=== PATIENT | male | born 1955 | race Caucasian/White ===

== ENCOUNTER 2019-11-16 00:57 | Outpatient (CLI) | payer OTHER, SELFPAY ==
[2019-11-16 18:01] LABS: SARS-CoV-2 RNA PCR Negative
== END 2019-11-16 00:58 | disposition home or self-care (01) ==
LOC: ANHCOVIDDT 00:57
PROVIDERS: PCP Internal Medicine; Visit Provider Internal Medicine Gastroenterology
DX: Z01.812 Encounter for preprocedural laboratory examination (principal); Z20.828 Contact with and (suspected) exposure to other viral communicable diseases
CPT/HCPCS: 87635; C9803; U0003

== ENCOUNTER 2019-11-18 00:37 | Day surgery (SDC) | payer OTHER, SELFPAY ==
[2019-11-11 14:37] VITALS: BMI 25.0
[2019-11-18 06:23] VITALS: BP 157/84; PULSE 69; RESP 16; TEMP 36.4; O2SAT 97; BMI 24.7
[2019-11-18] MEDS: LACTATED RINGERS 1,000 ML 150 ML IV CONT (06:33)
--- NOTE | 2019-11-18 07:02 | P.HP_ITS ---
History of Present Illness History of Present Illness Consent: Risks, benefits, and alternatives have been discussed and questions answered. Patient agrees to proceed with procedure. Chief complaint: PERSONAL HX COLON POLYPS Narrative: Yeyo Bailon is a 64 year old W male Referred for colonoscopy secondary history of colonic polyps. Last colonoscopy was 4 years ago. No family history of colon cancer. Patient is asymptomatic. Patient does have a history of Schatzki's ring which was dilated 4 years ago and he has done well since that time. Patient also stop smoking 2 years ago. [facility] Past Medical History Medical History (Updated 11/18/19 @ 07:05 by Alonzo Lim MD) Aftercare following right shoulder joint replacement surgery Surgical History Surgical History (Updated 11/18/19 @ 07:05 by Alonzo Lim MD) Previous back surgery S/P bilateral inguinal herniorrhaphy Status post tonsillectomy and adenoidectomy Family History Family History Sibling Family history of gastrointestinal disorder Family history of malignant neoplasm of cervix Father Family history of congenital heart disease Mother Family history of malignant neoplasm Other Family history of arthritis Family history of lung cancer Social History Social History Smoking status: Former smoker Second hand tobacco smoke exposure: No Smoking end date: 02/18/14 Alcohol intake: current Substance use: never Gender identity (if verbalized by the patient): Male Meds Home Medications and Allergies Home Medications Medication Instructions Recorded Confirmed Type No Home Medications 11/11/19 11/18/19 History Allergies Allergy/AdvReac Type Severity Reaction Status Date / Time No Known Allergies Allergy Verified 11/18/19 06:22 Vital Signs Vital Signs - 24 hr 11/18/19 06:23 Temperature 36.4 C L Pulse Rate 69 Respiratory Rate 16 Blood Pressure 157/84 H Pulse Oximetry 97 Exam Const: Orientation/consciousness: patient oriented x3 Resp: Auscultation: clear to auscultation bilaterally Cardio: Rate: regular rate Rhythm: regular rhythm Heart sounds: no murmurs GI: GI Palp: Yes Soft to palpation, No Tenderness to palpation present (GI), Yes No hepatosplenomegaly present and No Palpable mass present Auscultation: normal bowel sounds Neuro: General: patient oriented x3 and no focal motor deficits Extrem: General: no pedal edema Assessment and Plan Additional Plan screening colonoscopy secondary history of colonic polyps
--- NOTE | 2019-11-18 07:09 | WPDANESEPPF ---
Anes - Initial Pre Proc Eval Procedure: Operation Date: 11/18/19 07:30 Proposed Procedures p Screening Colonoscopy - Alonzo Lim MD Date/Time: 11/18/19 07:09 Surgeon: Alonzo Lim MD Pre Op Diagnosis: PERSONAL HX COLON POLYPS Patient Data Age: 64 Gender: M Height: 6 ft 3 in Weight: 89.8 kg Last Vital Signs Temp 36.4 C L 11/18/19 06:23 Pulse 69 11/18/19 06:23 Resp 16 11/18/19 06:23 BP 157/84 H 11/18/19 06:23 Pulse Ox 97 11/18/19 06:23 Allergies Allergy/AdvReac Type Severity Reaction Status Date / Time No Known Allergies Allergy Verified 11/18/19 06:22 Home Medications Medication Instructions Recorded Confirmed Type No Home Medications 11/11/19 11/18/19 History Patient hx anesthesia problems: none Family hx anesthesia problems: none PMFSH Past Medical History Medical History Aftercare following right shoulder joint replacement surgery LILI (obstructive sleep apnea) Surgical History Surgical History Previous back surgery S/P bilateral inguinal herniorrhaphy Status post tonsillectomy and adenoidectomy Family History Family History Sibling Family history of gastrointestinal disorder Family history of malignant neoplasm of cervix Father Family history of congenital heart disease Mother Family history of malignant neoplasm Other Family history of arthritis Family history of lung cancer Social History Social History Smoking status: Former smoker Second hand tobacco smoke exposure: No Smoking end date: 02/18/14 Alcohol intake: current Substance use: never Gender identity (if verbalized by the patient): Male Anes - Eval Final PreProcedure Day of Procedure 11/18/19 07:09 Patient weight: normal Heart: regular rate and rhythm Lungs: clear to auscultation Airway: Mallampati scale class II Neurological: alert and oriented Last oral intake: >/= 8 hours ASA classification: II Emergent: no Anesthetic plan: proceed Anesthesia type and monitoring: general GIVS and standard monitoring Informed Consent: The patient's anesthetic plan and its attendant risks and benefits were discussed with the patient/family/POA. Questions were solicited and answers provided to the satisfaction of the patient/family/POA.
[2019-11-18 07:44] VITALS: BP 111/60; PULSE 71; RESP 20; O2SAT 98
[2019-11-18 07:54] VITALS: BP 117/64; PULSE 69; RESP 21; O2SAT 100
[2019-11-18 08:04] VITALS: BP 139/82; PULSE 57; RESP 14; O2SAT 98
== END 2019-11-18 08:18 | disposition home or self-care (01) ==
PROVIDERS: PCP Internal Medicine; Visit Provider Internal Medicine Gastroenterology
PROC: 0DJD8ZZ Inspection of Lower Intestinal Tract, Via Natural or Artificial Opening Endoscopic (ICD-10-PCS; CPT 45378; principal; 2019-11-18 07:30)
DX: Z12.11 Encounter for screening for malignant neoplasm of colon (principal); Z86.010 Personal history of colon polyps; K57.30 Diverticulosis of large intestine without perforation or abscess without bleeding; K64.8 Other hemorrhoids; G47.33 Obstructive sleep apnea (adult) (pediatric); Z87.891 Personal history of nicotine dependence
CPT/HCPCS: 45378; J2704; J7120

== ENCOUNTER 2021-01-13 10:56 | Emergency (ER) | payer OTHER, SELFPAY ==
--- NOTE | ~2021-01-13 | CT_ITS ---
EXAMINATION: CT brain wo con INDICATION: Headache COMPARISON: None TECHNIQUE: Standard unenhanced head CT. The dose-length product (DLP) was 681.00 mGy-cm. The mA was a djusted according to patient size. Iterative reconstruction technique was employed. FINDINGS: There is no acute intraparenchymal hemorrhage. No evidence of mass lesion. No evidence of a cute infarction. There is mild periventricular and subcortical hypodensity probably related to small vessel ischemic disease. There is mild prominence of the sulci and ventricles related to cerebral atr ophy. Intracranial calcified cerebral atherosclerosis is noted. There are no extra-axial collections. There is no mass effect or midline shift. The orbits and soft tissues are unremarkable. There is mil d mucosal thickening of the paranasal sinuses. IMPRESSION: 1. No acute intracranial abnormality. 2. Age related findings. Reviewed, dictated and finalized at location A. RIBUTION TECH
[2021-01-13 11:10] VITALS: BP 167/82; PULSE 79; RESP 16; TEMP 36.9; O2SAT 97
[2021-01-13 12:17] LABS: Basophils Absolute Auto 0.1 K/mm3 (0.0-0.1); Basophils Percent Auto 1.1 % (0.2-1.2); Eosinophils Absolute Auto 0.4 K/mm3 (0-0.3); Eosinophils Percent Auto 4.2 % (0-4.4); Hemoglobin 17.2 g/dL (14.0-18.0); Immature Granulocyte Absolute 0.04 K/mm3 (0.00-0.031); Immature Granulocyte Percent A 0.5 % (0-0.5); Lymphocytes Absolute Auto 1.39 K/mm3 (0.9-3.2); Lymphocytes Percent Auto 16.7 % (18.3-44.2); Mean Corpuscular HGB Conc 35.1 g/dl (32-36); Mean Corpuscular Hemoglobin 32.5 pg (26-34); Mean Corpuscular Volume 92.6 fl (80-100); Mean Platelet Volume 9.2 fl (7.4-10.4); Monocytes Absolute Auto 1.1 K/mm3 (0.1-0.6); Monocytes Percent Auto 12.8 % (2.6-8.5); Neutrophils Absolute Auto 5.4 K/mm3 (1.3-6.7); Neutrophils Percent Auto 64.7 % (45.5-73.1); Platelet Count Result 232 k/mm3 (150-375); Red Blood Count 5.29 M/mm3 (4.6-6.20); Red Cell Distribution Width 12.7 % (11.5-14.5); White Blood Count 8.3 K/mm3 (4.5-10.0)
[2021-01-13 12:26] LABS: Alanine Aminotransferase 33 U/L (4-50); Alkaline Phosphatase 67 U/L (38-126); Anion Gap 8 mmol/L (8-16); Aspartate Amino Transferase 37 U/L (17-59); Bilirubin,Total 0.7 mg/dL (0.2-1.3); Blood Urea Nitrogen 26 mg/dL (9-20); Calcium 9.7 mg/dL (8.4-10.2); Carbon Dioxide 27 mmol/L (22-30); Chloride 101 mmol/L (98-107); Estimated CRCL calculation 85 ml/min; Estimated Glomerular Filt Rate > 60; Glucose 117 mg/dL (65-110); Potassium 4.4 mmol/L (3.4-5.0); Sodium 136 mmol/L (137-145)
--- NOTE | 2021-01-13 12:33 | ED.HA ---
HPI - Headache General Chief Complaint: Headache Stated Complaint: transient headaches Time Seen by Provider: 01/13/21 11:37 Source: patient History of Present Illness HPI Narrative: Patient presents with left temporal headache intermittently over the past 2 days. Ports he gets a sharp shooting pain in his left temporal been resolved without interventions. He took Tylenol this morning has not had episodes today. He also reports associated blurry vision when looking off into the distance in his left eye. He denies any trauma to the area denies any fevers, cough, congestion denies any focal numbness or weakness he denies prior history of headaches. Related Data Home Medications Medication Instructions Recorded Confirmed finasteride 1 mg tablet 1 mg PO DAILY 07/05/20 07/05/20 tamsulosin 0.4 mg capsule 0.4 mg PO DAILY 07/05/20 07/05/20 Allergies Allergy/AdvReac Type Severity Reaction Status Date / Time No Known Allergies Allergy Verified 07/05/20 08:50 Review of Systems Review of Systems: CONSTITUTIONAL: Denies fever, chills, or sweats. EYES: Denies redness, or discharge. ENT: Denies rhinorrhea, congestion, sore throat, or otalgia. CARDIOVASCULAR: Denies chest pain, palpitations, or edema. RESPIRATORY: Denies cough or dyspnea. GASTROINTESTINAL: Denies abdominal pain, nausea, vomiting, or diarrhea. GENITOURINARY: Denies dysuria or hematuria. SKIN: Denies rash or itching. MUSCULOSKELETAL: Denies back pain, joint pain, or myalgia. NEUROLOGIC: Denies numbness, dizziness, or weakness. PSYCHIATRIC: Denies anxiety or depression. All systems reviewed & are unremarkable except as noted in HPI and below [facility] Past Medical History Medical History (Updated 01/13/21 @ 13:07 by Aleksandar Blackman MD) Aftercare following right shoulder joint replacement surgery LILI (obstructive sleep apnea) Surgical History Surgical History Previous back surgery S/P bilateral inguinal herniorrhaphy Status post tonsillectomy and adenoidectomy Family History Family History Sibling Family history of gastrointestinal disorder Family history of malignant neoplasm of cervix Father Family history of congenital heart disease Mother Family history of malignant neoplasm Other Family history of arthritis Family history of lung cancer Social History Social History Smoking status: Former smoker Second hand tobacco smoke exposure: No Smoking end date: 02/18/14 Alcohol intake: current Substance use: never Gender identity (if verbalized by the patient): Male Exam Narrative: GENERAL: Well-appearing, well-nourished, and in no acute distress. HEAD: Normocephalic, atraumatic. EYES: PERRLA and EOMI. ENT: Nares clear, no rhinorrhea or epistaxis. Mucous membranes moist. NECK: Supple. No masses. No JVD CHEST: Clear to auscultation. No respiratory distress. No wheezes rales or rhonchi HEART: Regular rate and rhythm. No murmur heard. Normal peripheral pulses. ABDOMEN: Soft, nontender, nondistended, normal active bowel sounds. EXTREMITIES: Normal range of motion. No edema. SKIN: Warm, dry, no rash. NEURO: No focal deficits. Alert and oriented x3. PSYCH: Normal mood and affect. Course Reevaluation(s) Reevaluation #1: Patient resting comfortably has not had recurrence of symptoms and has remained asymptomatic throughout his ER stay. Results and plan reviewed with patient. Patient comfortable with outpatient plan. Date: 01/13/21 Time: 13:05 Vital Signs Vital signs: Vital Signs Temperature 36.9 C 01/13/21 11:10 Pulse Rate 79 01/13/21 11:10 Respiratory Rate 16 01/13/21 11:10 Blood Pressure 167/82 H 01/13/21 11:10 Pulse Oximetry 97 01/13/21 11:10 Temperature 36.9 C 01/13/21 11:10 Pulse Rate 79 01/13/21 11:10 Respiratory Rate 16 01/13/21 1
[2021-01-13 12:46] LABS: Erythrocyte Sedimentation Rate 17 mm/hr (0-20)
== END 2021-01-13 13:21 | disposition home or self-care (01) ==
PROVIDERS: Emergency Provider Emergency Medicine; PCP Internal Medicine
DX: R51.9 Headache, unspecified (principal); G47.33 Obstructive sleep apnea (adult) (pediatric); Z96.611 Presence of right artificial shoulder joint; Z87.891 Personal history of nicotine dependence
CPT/HCPCS: 36415; 70450; 80053; 85025; 85652; 99284

== ENCOUNTER → 2022-09-05 15:08 | Outpatient (CLI) | payer MEDICARE, SELFPAY ==
--- NOTE | ~2022-09-05 | XR_ITS ---
XR ankle LT min 3V DATE: 09/05/2022 16:08 INDICATION: Pain, swelling, erythema and lateral left ankle; no injury. TECHNIQUE: 4 views COMPARISON: None FINDINGS: There is mild lateral soft tissue swelling. No fracture or dislocation of the ankle or disruption of the ankle mortise is detected. No periosteal reaction or bone destruction. Mild plantar calcaneal enthesopathy without associated erosive change or periostitis. IMPRESSION: Mild lateral ankle soft tissue swelling Plantar calcaneal enthesopathy Reviewed, dictated and finalized at location B.
== END ==
PROVIDERS: PCP Internal Medicine; Visit Provider Internal Medicine
DX: M25.572 Pain in left ankle and joints of left foot (principal); M79.89 Other specified soft tissue disorders; M77.32 Calcaneal spur, left foot
CPT/HCPCS: 73610

== ENCOUNTER 2023-09-16 23:04 | Emergency (ER) | payer MEDICARE, SELFPAY ==
[2023-09-16 23:04] VITALS: BP 128/81; PULSE 70; RESP 14; TEMP 36.3; O2SAT 97
[2023-09-16 23:14] VITALS: RESP 14; O2SAT 97
--- NOTE | 2023-09-17 00:01 | ED.GENADULT ---
HPI - General Adult General Chief complaint: Unspecified Stated complaint: food bolus Time Seen by Provider: 09/16/23 23:30 Source: patient and family Limitations: no limitations History of Present Illness HPI narrative: Patient is a 68-year-old male presents to the emergency department complaining of a sensation of core being stuck in his esophagus. Patient states approximately 1 hour ago he was eating corn off a [employer] and nothing else when he felt like it got stuck approximately at the midsternum level that is since been having difficulty keeping anything down including his saliva in which also level some saliva but then he will spit it back up in a glob of it. Patient has not tried anything for the symptoms. Patient admits to having an EGD and balloon of his esophagus approximate 3-5 years ago. Patient denies any recent injuries, recent illness, difficulty breathing, chest pain, neck pain. Related Data Allergies Allergy/AdvReac Type Severity Reaction Status Date / Time No Known Allergies Allergy Verified 01/02/22 08:49 Review of Systems Review of Systems: A 10 system review of systems was completed on the patient and is negative except for what is stated in the HPI. Nursing and ancillary documentation was reviewed. [facility] Past Medical History Medical History (Updated 09/17/23 @ 00:26 by Wilber Ramírze DO) Aftercare following right shoulder joint replacement surgery LILI (obstructive sleep apnea) Surgical History Surgical History Previous back surgery S/P bilateral inguinal herniorrhaphy Status post tonsillectomy and adenoidectomy Family History Family History Sibling Family history of gastrointestinal disorder Family history of malignant neoplasm of cervix Father Family history of congenital heart disease Mother Family history of malignant neoplasm Other Family history of arthritis Family history of lung cancer Social History Social History (Updated 01/02/22 @ 08:59 by Erika Carver CMA) Smoking status: Former smoker Second hand tobacco smoke exposure: No Smoking end date: 02/18/14 Alcohol intake: current Substance use: never Lack of Transportation: No Lack of Food: Never True Current Housing: I Have Housing Concerned About Future Housing: No Difficulty Paying Gas/Electric Bills: No Difficulty Paying for Meds: No Currently Unemployed: No Education: High School Diploma/GED Difficulty w/ Childcare or Family Care: No Gender identity (if verbalized by the patient): Male Comments At time of signature, I have reviewed and agree with nursing past medical, surgical, social and family history unless otherwise noted. Please see the nursing chart for further information. There is no relevant family history pertinent to the presenting complaint. Exam Narrative: CONST: No acute distress. Well nourished. In frequently spitting saliva into a bag. HENMT: Head is normocephalic and atraumatic. Moist mucous membranes. No posterior oropharynx erythema. EYES: No conjunctival icterus, injection, or pallor. PERRL. NECK: No meningeal signs. No palpable masses. No thyromegaly or thyroid tenderness to palpation. No crepitus. RESP: Able to speak in full sentences. Normal respiratory effort. CTAB. CARDIO: Regular rate. Regular rhythm. 2+ DP and radial pulses bilaterally. GI: Nondistended. No tenderness to palpation. Soft. : No CVA tenderness to palpation. SKIN: No rashes or lesions noted on exposed skin. NEURO: Oriented x3. Moves all extremities. EXTREM/MSK/BACK: No pedal edema. PSYCH: Normal affect. Course Vital Signs Vital signs: Vital Signs Temperature 97.3 F L 09/16/23 23:04 Pulse Rate 70 09/16/23 23:04 Respiratory Rate 14 09/16/23 23:04 Blood Pressure 128/81 09/16/23 23:04 Pulse Oximetry 97 09/16/23 23:04 Oxygen Delivery Room Air 07
--- NOTE | 2023-09-17 00:13 | PC.NURSE ---
Dr. Ramírez verbally ordered RN to give pt a carbonated beverage before trying glucagon. This RN gave pt a pepsi and is holding glucagon until verbal ordered otherwise.
== END 2023-09-17 00:34 | disposition home or self-care (01) ==
PROVIDERS: Emergency Provider Student in an Organized Health Care Education/Training Program; PCP Internal Medicine
DX: T18.128A Food in esophagus causing other injury, initial encounter (principal); G47.30 Sleep apnea, unspecified; W44.F3XA Food entering into or through a natural orifice, initial encounter
CPT/HCPCS: 99282

== ENCOUNTER 2024-05-08 11:52 | Outpatient (CLI) | payer MEDICARE, SELFPAY ==
--- OUTSIDE RECORDS SUMMARY | 2024-05-08 12:56 | XMS_ITS | Clinical Summary ---
Author Organization [facility] Address [address] [place] [id number] Care Team Providers Care Special Technical Operations Officer Name Role Phone Denis Goodson MD Primary Care Provider [phone] Allergies No known active allergies Medications finasteride 5 MG tablet Take 5 mg by mouth daily. Active tamsulosin 0.4 MG Cap Take 0.4 mg by mouth daily. Active Multiple Vitamin (MULTIVITAMIN ADULT OR) Take 1 tablet by mouth daily. Active Active Problems Problem Noted Date Diagnosed Date Hypertrophy of prostate with urinary obstruction 08/02/2020 Family History Medical History Relation Comments Cancer Brother 1 prostate crohns Brother 2 Cancer Father prostate Cancer Mother lung Cancer Sister 1 cervical Relation Status Comments Brother 1 Alive Brother 2 Alive Daughter Alive Father Mother Sister 1 Sister 2 Alive Son Alive Social History Tobacco Use Types Packs/Day Years Used Date Smoking Tobacco: Former Cigarettes 1 10 2 2016 Smokeless Tobacco: Never Alcohol Use Standard Drinks/Week Comments Yes 0 (1 standard drink = 0.6 oz pur e alcohol) less than 5 drinks/day Sex and Gender Information Value Date Recorded Sex Assigned at Not on file Legal Sex Male 7:53 AM CDT Gender Identity Not on file Sexual Orientation Not on file Last Filed Vital Signs Vital Sign Reading Time Taken Comments Blood Pressure 138/76 08/03/2020 2:02 PM CDT Pulse 62 08/03/2020 2:02 PM CDT Temperature 36.4 C (97.6 F) 08/03/2020 2:02 PM CDT Respiratory Rate 11 08/03/2020 2:02 PM CDT Oxygen Saturation 95% 08/03/2020 2:02 PM CDT Inhaled Oxygen Concentration - - Weight 85.5 kg (188 lb 7.9 oz) 08/02/2020 11:30 AM CDT Height 188 cm (6' 2 ) 08/02/2020 11:30 AM CDT Body Mass Index 24.2 08/02/2020 11:30 AM CDT Plan of Treatment Health Maintenance Due Date Last Done Comments Colorectal Cancer Screening Colonoscopy (10 Years) 1956 Hepatitis C 1974 DTaP, Tdap and Td Vaccines ( 1 - Tdap) 08/25/1975 Zoster Vaccines (1 of 2) 2006 Pneumococcal Vaccine: 65+ Ye ars (1 of 1 - PCV) 2021 COVID-19 Vaccine (1 - 2023-2 5 season) 2023 Influenza Adult (#1) 2023 RSV Immunization or 60+ Years (1 - 1-dose 75+ series) 08/25/2031 Meningococcal B Vaccine Aged Out No l onger eligible based on patient's age to complete this topic Meningococcal Vaccine Aged Out No riri yoselin eligible based on patient's age to complete this topic RSV Immunizations Under 20 Months Aged Out No longer eligible based on patient's age to complete this topic Goals Goal Patient Goal Type Associated Problems Recent Progress Patient-Stated? Author Safety - demonstrates understanding of home safety measures General No Hanna Guzman, RN Insurance [employer] Advance Directives * Full Code (Latest Code Status on File) Date Activated Date Inactivated Comments 08/02/2020 3:52 PM 08/03/2020 5:42 PM Care Teams Special Technical Operations Officer Relationship Specialty Start Date End Date Denis Goodson MD [address] [place] [address] PCP - General INTERNAL MEDICINE 07/27/20
--- OUTSIDE RECORDS SUMMARY | 2024-05-08 12:56 | XMS_ITS | Referral Summary ---
Author Organization [facility] [address] Address [address] [place] [address] Care Team Providers Care Occasional Caregiver Name Role Phone Awilda Smyth MD, Sandeep Garibay Primary Care Provide r Encounters Date Type Department Care Team Description 05/05/2024 Telephone [facility] [address] [place] [phone] Sandeep Kaiser Jr., MD 05/04/2024 8:30 AM CDT Office Visit [facility] [address] [place] [phone] Sandeep Kaiser Jr., MD Preventative health care (Primary Dx); Pure hypercholesterolemia; Primary hypertension; History of tobacco abuse; Abnormal stress test; Fatigue, unspecified type; Preoperative cardiovascular examination 04/02/2024 9:15 AM BRIDGE REPAIR CREW PERSON Office Visit [facility] [address] [place] [phone] Sandeep Kaiser Jr., MD Primary osteoarthritis of left knee (Primary Dx) 03/31/2024 Telephone [facility] [address] [place] [phone] Sandeep Kaiser Jr., MD Medical Question/Miscellaneous from Last 3 Months Allergies No known active allergies Medications multivitamin-iron- folic acid 18-400 mg-mcg tablet Take 1 tablet by mouth daily Active acetaminophen ER (TYLENOL) 650 mg 8 hr tabletIndications: Primary osteoarthritis of left knee Take 1 tablet (650 mg total) by mouth 3 (three) times a day 90 tablet 5 Active amLODIPine (NORVASC) 5 mg tabletIndications: Primary hypertension Take 1 tablet (5 mg total) by mouth daily 90 tablet 4 5 05/05/19 26 Active losartan (COZAAR) 50 mg tabletIndications: Primary hypertension Take 1 tablet (50 mg total) by mouth daily 90 tablet 3 5 05/05/19 25 Discontinu ed(Therapy completed) hydroCHLOROthiazid e (HYDRODIURIL) 25 mg tabletIndications: Primary hypertension Take 1 tablet (25 mg total) by mouth daily 30 tablet 5 05/05/19 25 Discontinu ed(Therapy completed) Active Problems Problem Noted Date Diagnosed Date Primary hypertension 05/04/2024 Assessment & Plan (05/04/2024 10:14 AM CDT): Will start amlodipine Will consider change to losartan after surgery Preventative health care 05/01/2023 Assessment & Plan (05/04/2024 10:12 AM CDT): Reviewed labs, screenings and vaccines Assessment & Plan (05/01/2023 11:27 AM CDT): Reviewed previous labs and diagnostic test results. Chronic medical problems evaluated and management plans discussed with the patient. Prescription medications, supplements, vitamins and immunizations reviewed. Wear seatbelts. Use sunscreen. Discussed healthy diet and disease prevention and controlling portions including alcohol Discussed importance of scheduling recommended screening tests. Discussed importance of regular physical examinations for health maintenance. Discussed importance of a living will, advanced directives and establishing or updating healthcare power of state's attorney document and providing our office with a copy. Hypertrophy of prostate with urinary obstruction 08/02/2020 Overview (05/04/2024): S/p 2020 Preoperative cardiovascular examination 12/19/19 18 Pure hypercholesterolemia 12/18/2017 Assessment & Plan (05/04/2024 10:13 AM CDT): Monitor levels, normal History of tobacco abuse 12/18/2017 Assessment & Plan (05/04/2024 10:13 AM CDT): Quit years ago Assessment & Plan (05/01/2023 11:33 AM CDT): Quit several years ago Resolved Problems Problem Noted Date Diagnosed Date Resolved Date Abnormal stress test 12/18/2017 024 Immunizations Immunization Administration Dates Next Due Influenza, Unspecified 04/02/2024(Deferr ed: Patient Refused),12/20/2023(Deferred: Patient Refused),05/01/2023(Deferred: Patient Refused),03/28/2023(Deferred: Patient Refused),12/19/2022(Deferred: Patient Refused),12/19/2022(Deferred: Patient Refused),12/19/2021(Deferred: Patient Refused),12/19/2021(Deferred: Patient Refused) Social History Tobacco Use Types Packs/Day Years Used Date Smoking Tobacco: Former Cigarettes Q uit: 07/2017 Smokeless Tobacco: Never Tobacco Cessation:Counseling Given: Not Answered Alcohol Use Standard Drinks/Week Comments Yes 0 (1 standard drink = 0.6 oz pur e alcohol) AUDIT-C Answer Date Recorded Q1: How often do you have a drink containing alcohol? 4 or more times a week 05/01/2023 Q2: How many drinks containi ng alcohol do you have on a typical day when you are drinking? 1 or 2 Q3: How often do you have si x or more drinks on one occasion? Never 05/01/2023 PHQ-2 Answer Date Recorded PHQ-2 Total Score (If total score is 3 or more points, staff should administer the PHQ-9) 0 05/04/2024 PHQ-9 Answer Date Recorded PHQ-9 Total Score 0 05/01/2023 Sex and Gender Information Value Date Recorded Sex Assigned at Not on file Legal Sex Male 10:58 AM CDT Gender Identity Not on file Sexual Orientation Not on file Last Filed Vital Signs Vital Sign Reading Time Taken Comments Blood Pressure 120/66 05/04/2024 8:37 AM CDT Pulse 73 05/04/2024 8:37 AM CDT Temperature 36.4 C (97.6 F) 05/04/2024 8:37 AM CDT Respiratory Rate 18 05/04/2024 8:37 AM CDT Oxygen Saturation 97% 05/04/2024 8:37 AM CDT Inhaled Oxygen Concentration - - Weight 86.6 kg (191 lb) 05/04/2024 8:37 AM CDT Height 186.7 cm (6' 1.5 ) 05/04/2024 8:37 AM CDT Body Mass Index 24.86 05/04/2024 8:37 AM CDT Plan of Treatment Not on file Procedures Procedure Name Priority Date/Time Associated Diagnosis Comments US ABDOMINAL AORTIC ANEURYSM SCREENING Schedule Routine, Read Routine (OP Routine) 05/13/2023 8:14 AM CDT Encounter for Medicare annual wellness exam History of tobacco abuse HEPATITIS C ANTIBODY Routine 03/28/2023 12:18 PM BRIDGE REPAIR CREW PERSON Preventative health care PSA SCREEN Routine 03/28/2023 12:18 PM BRIDGE REPAIR CREW PERSON Preventative health care HM COLONOSCOPY Routine 11/18/2019 from Last 3 Months or Most Recently Relevant to Health Maintenance Results * US Abdominal Aortic Aneurysm Screening (05/13/2023 8:14 AM CDT) Anatomical Region Laterality Modality Abdomen Ultrasound 05/13/2023 10:5 3 AM CDT Narrative 05/13/2023 10:53 AM CDT EXAM DESCRIPTION: US ABDOMINAL AORTIC ANEURYSM SCREENING REASON FOR STUDY: AAA screening, smoking history (Age => 50y) TECHNIQUE: Grayscale images acquired of the aorta and stored on PACS. Selected color Doppler and spectral images recorded. COMPARISON: None. FINDINGS: AORTIC CALIBER MAXIMAL PROXIMAL: 2.3 x 2.4 cm. MID: 2.0 x 2.2 cm. DISTAL: 1.8 x 1.8 cm. ILIAC DIAMETER RIGHT: 0.8 x 1.3 cm. LEFT: 0.9 x 1.2 cm. OTHER: The liver appears echogenic suggesting steatosis. IMPRESSION: No abdominal aortic aneurysm. Hepatic steatosis. REFERENCE: Please see below follow up recommendations for abdominal aortic aneurysm surveillance per Society for Vascular Surgery Guidelines: < 2.5 cm No follow up or future screenings necessary 2.52.9 cm Recommended ultrasound follow up every 10 years 3.0-3.9 cm Recommended ultrasound follow up every 3 years 4.0-4.9 cm Recommended ultrasound follow up every 12 months, vascular surgery consult 5.0-5.4 cm Recommended ultrasound follow up every 6 months, vascular surgery consult >= 5.5 cm Referral to vascular surgeon Based upon Society for Vascular Surgery Guidelines: J Vasc Surgery 2008 50: [id number]; updated Feb 2017 J Vasc Surgery 67:277 THIS IS AN ELECTRONICALLY VERIFIED FINAL REPORT 05/13/2023 10:53 AM - Electronically signed by Km Mora M.D. CH: NICOL Report ID: [id number] Reading Location: [id number] Procedure Note Km Mora Jr., MD - 05/13/2023 EXAM DESCRIPTION: US ABDOMINAL AORTIC ANEURYSM SCREENING REASON FOR STUDY: AAA screening, smoking history (Age => 50y) TECHNIQUE: Grayscale images acquired of the aorta and stored on PACS.Selected color Doppler and spectral images recorded. COMPARISON: None. FINDINGS: AORTIC CALIBER MAXIMAL PROXIMAL: 2.3 x 2.4 cm. MID: 2.0 x 2.2 cm. DISTAL: 1.8 x 1.8 cm. ILIAC DIAMETER RIGHT: 0.8 x 1.3 cm. LEFT: 0.9 x 1.2 cm. OTHER: The liver appears echogenic suggesting steatosis. IMPRESSION: No abdominal aortic aneurysm. Hepatic steatosis. REFERENCE: Please see below follow up recommendations for abdominal aortic aneurysm surveillance per Society for Vascular Surgery Guidelines: < 2.5 cm No follow up or future screenings necessary 2.52.9 cm Recommended ultrasound follow up every 10 years 3.0-3.9 cm Recommended ultrasound follow up every 3 years 4.0-4.9 cm Recommended ultrasound follow up every 12 months, vascularsurgery consult 5.0-5.4 cm Recommended ultrasound follow up every 6 months, vascularsurgery consult >= 5.5 cm Referral to vascular surgeon Based upon Society for Vascular Surgery Guidelines: J Vasc Surgery 50: [email or web address]; updated Feb 2017 J Vasc Surgery 67:277 THIS IS AN ELECTRONICALLY VERIFIED FINAL REPORT 05/13/2023 10:53 AM - Electronically signed by Km Mora M.D. CH: NICOL Report ID: [id number] Reading Location: [place] [address] Sandeep Kaiser Jr., MD IM US PROCEDURES Fin al Result * PSA screen (03/28/2023 12:18 PM BRIDGE REPAIR CREW PERSON) PSA-Total 0.74 <=5.40 ng/mL ADRIANE Comment: Interpretive Data AGE SEX REFERENCE INTERVAL 0 minutes-150 years Female None 0 minutes-49 years Male None 50-59 years Male 0-3.90 60-69 years Male 0-5.40 70-79 years Male 0-6.20 80-150 years Male 0-6.20 The Mariella PSA Total assay procedure was used. Results from different manufacturers or methods may not be comparable. Serial testing should be performed using the same method. Current interpretive data last revised 21. Testing performed by: [facility], [address] [place] [address]., [id number] Blood 03/28/2023 12:1 8 PM BRIDGE REPAIR CREW PERSON 03/28/2023 1:48 PM BRIDGE REPAIR CREW PERSON Sandeep Kaiser Jr., MD LAB BLOOD ORDERABLES Final Result Performing Organization Address City/State/[facility] Co de Phone Number ADRIANE [address] [facility] Department [place] [address] * Hepatitis C antibody Blood (03/28/2023 12:18 PM BRIDGE REPAIR CREW PERSON) Hep C Ab Nonreactive Nonreactive ADRIANE Comment: Antibodies to HCV not detected. Does NOT exclude the possibility of recent exposure to HCV. Current interpretive data was last revised on 21 Interpretive Data Nonreactive: Antibodies to HCV not detected. Does NOT exclude the possibility of recent exposure to HCV. Equivocal: Equivocal for HCV antibodies. Supplemental molecular testing will be automatically performed to determine infection status in accordance with current CDC screening recommendations. Reactive: Positive for HCV antibodies. This may represent current or past HCV infection. Supplemental molecular testing will be automatically performed to determine current infection status in accordance with current CDC screening recommendations. Interpretive data was last revised on 2019. Blood 03/28/2023 12:1 8 PM BRIDGE REPAIR CREW PERSON 03/28/2023 2:38 PM BRIDGE REPAIR CREW PERSON Sandeep Kaiser Jr., MD LAB MICROBIOLOGY - NERAL ORDERABLES Final Result ADRIANE MH [address] [facility] Department [place] [address] * COLONOSCOPY (11/18/2019) Scribed Colonoscopy Abnormal Historical Provider HEALTH MAINTENANCE Final Result from Last 3 Months or Most Recently Relevant to Health Maintenance Insurance [facility] MEDICARE [facility] Address: [facility] [address] [place] [address] Care Teams Occasional Caregiver Relationship Specialty Start Date End Date Sandeep Kaiser Jr., MD [address] [place] [address] PCP - General Internal Medicine 03/28/23
--- OUTSIDE RECORDS SUMMARY | 2024-05-08 12:56 | XMS_ITS | Clinical Summary ---
Author Organization [facility] [address] Address [address] [place] [address] Care Team Providers Care Evp General Counsel Name Role Phone Awilda Smyth MD, Sandeep Garibay Primary Care Provide r Allergies No known active allergies Medications multivitamin-iron- [...] and establishing or updating healthcare power of [place] attorney document and providing our office with [...] Resolved Date Abnormal stress test 12/18/2017 024 Encounters Date Type Department Care Team Description 05/05/2024 Telephone [facility] [address] [place] [phone] Sandeep Kaiser Jr., MD 05/04/2024 8:30 AM CDT Office Visit [facility] [address] [place] [phone] Sandeep Kaiser Jr., MD Preventative health care (Primary Dx); Pure hypercholesterolemia; Primary hypertension; History of tobacco abuse; Abnormal stress test; Fatigue, unspecified type; Preoperative cardiovascular examination 04/02/2024 9:15 AM VACATION GUIDE Office Visit [facility] [address] [place] [phone] Sandeep Kaiser Jr., MD Primary osteoarthritis of left knee (Primary Dx) 03/31/2024 Telephone [facility] [address] [facility] [address] [place] [address] Sandeep Kaiser Jr., MD Medical Question/Miscellaneous from Last 3 Months Immunizations Immunization Administration Dates Next Due Influenza, Unspecified 04/02/2024(Deferr ed: Patient Refused),12/20/2023(Deferred: Patient Refused),05/01/2023(Deferred: Patient Refused),03/28/2023(Deferred: Patient Refused),12/19/2022(Deferred: Patient Refused),12/19/2022(Deferred: Patient Refused),12/19/2021(Deferred: Patient Refused),12/19/2021(Deferred: Patient Refused) Surgical History Surgery Date Site/Laterality Comments HERNIA REPAIR PROSTATE SURGERY 02/19/2020 - 02/17/2021 HOLMIUM LASER ENUCLEATION OF PROSTATE ([place]) Medical History Medical History Date Comments Sinusitis Diverticulitis Hypertension 6 months Family History Medical History Relation Name Comments Heart disease Father Prostate cancer Father Relation Name Status Comments Father (Age 87) Mother (Age 89) Social History Tobacco Use Types Packs/Day Years [...] on file Sexual Orientation Not on file Obstetrics History Last Filed Vital Signs Vital Sign Reading [...] 05/04/2024 8:37 AM CDT Plan of Treatment Health Maintenance Due Date Last Done Comments DTaP/Tdap/Td Vaccine (1 - Tdap) 08/25/1967 Hepatitis B Screening 1974 Pneumococcal vaccine 65+ (1 of 1 - PCV) 2006 Influenza Vaccine (#1) 2024 Postp oned from 10/20/2023 (Patient declined, but will receive in the future) Colon Cancer Screening-Colonoscopy 11/17/2024 11/18/2019 Prostate Cancer Screening-PSA 03/28/2025 03/28/2023 Depression Screening 05/04/2025 05/04/2024, 04/02/2024, 09/19/2023, Additional history exists Fall Risk Assessment 05/04/2025 05/04/2024, 05/01/2023, 03/28/2023 Well Visit 65+ 05/04/2025 05/04/2024, 05/01/2023 Zoster Vaccine (1 of 2) 05/04/2025 Post poned from 2006 (Insurance / Financial) Colon Cancer Screening-CT Colonography Discontinued 11/18/2019 Colon Cancer Screening-DNA Stool Discontinued 11/18/2019 Colon Cancer Screening-FIT Discontinued 11/18/2019 Colon Cancer Screening-Sigmoidoscopy Discontinued 11/18/2019 Hepatitis C Screening Completed 03/28/2023 Abdominal Aortic Aneurysm (AAA) Screen Completed 05/13/2023 Procedures Procedure Name Priority Date/Time Associated Diagnosis Comments US ABDOMINAL AORTIC ANEURYSM SCREENING Schedule Routine, Read Routine (OP Routine) 05/13/2023 8:14 AM CDT Encounter for Medicare annual wellness exam History of tobacco abuse HEPATITIS C ANTIBODY Routine 03/28/2023 12:18 PM VACATION GUIDE Preventative health care PSA SCREEN Routine 03/28/2023 12:18 PM VACATION GUIDE Preventative health care HM COLONOSCOPY Routine 11/18/2019 [...] Km Mora M.D. CH: NICOL Report ID: [id number] Reading Location: [id number] Procedure Note Km Mora Jr., MD - [...] for Vascular Surgery Guidelines: J Vasc Surgery 2009Oct 50: s2s49; updated Feb 2017 J Vasc Surgery 67:277 THIS IS AN ELECTRONICALLY VERIFIED FINAL REPORT 05/13/2023 10:53 AM - Electronically signed by Km Mora M.D. CH: NICOL Report ID: [id number] Reading Location: [id number] us Sandeep Kaiser Jr., MD IMG US PROCEDURES Fin al Result * PSA screen (03/28/2023 12:18 PM VACATION GUIDE) PSA-Total 0.74 <=5.40 ng/mL ADRIANE Comment: Interpretive [...] data last revised 21. Testing performed by: [facility], [address] [place] [address]., [id number] Blood 03/28/2023 12:1 8 PM VACATION GUIDE 03/28/2023 1:48 PM VACATION GUIDE Sandeep Kaiser Jr., MD LAB BLOOD ORDERABLES Final Result Performing Organization Address [facility] de Phone Number ADRIANE [address] [facility] Department [place] [address] * Hepatitis C antibody Blood (03/28/2023 12:18 PM VACATION GUIDE) Pathologist [facility] Hep C Ab Nonreactive Nonreactive ADRIANE Comment: [...] on 2019. Blood 03/28/2023 12:1 8 PM VACATION GUIDE 03/28/2023 2:38 PM VACATION GUIDE Sandeep Kaiser Jr., MD LAB MICROBIOLOGY - GE NERAL ORDERABLES Final Result Performing Organization Address City/[facility] Co de Phone Number ADRIANE MH [address] [facility] Department [place] [address] * COLONOSCOPY (11/18/2019) Scribed Colonoscopy Abnormal us Historical Provider HEALTH MAINTENANCE Final Result from Last 3 Months or Most Recently Relevant to Health Maintenance Insurance [facility] MEDICARE ADVANTAGE [facility] MEDIC[facility] Address: [facility] [address] [place] [address] Care Teams Evp General Counsel Relationship Specialty Start Date End Date Sandeep Kaiser Jr., MD [address] [place] [id number] PCP - General Internal Medicine 03/28/23
--- OUTSIDE RECORDS SUMMARY | 2024-05-08 12:56 | XMS_ITS | Encounter Summary ---
Author Organization [facility] Address [address] [place] [address] Care Team Providers Care Mobile Crane Operator Name Role Phone Denis Goodson MD Primary Care Provider [phone] Encounter Details Date Type Department Care Team (Late st Contact Info) Description 07/27/2020 Prep for Procedure [facility] Pre-Admission Testing [place], [place] [id number] Tanner Austin MD [address] [facility]. [place], [place] [id number] Social History Tobacco Use Types Packs/Day Years Used Date Smoking Tobacco: Former Cigarettes 1 2016 Smokeless Tobacco: Never Alcohol Use Standard Drinks/Week Comments Yes 0 (1 standard drink = 0.6 oz pur e alcohol) less than 5 drinks/day Sex and Gender Information Value Date Recorded Sex Assigned at Not on file Legal Sex Male 7:53 AM CDT Gender Identity Not on file Sexual Orientation Not on file COVID-19 Exposure Response Date Recorded In the last month, have you been in contact with someone who was confirmed or suspected to have Coronavirus / COVID-19? No / Unsure 07/27/2020 8:32 AM CDT documented as of this encounter Plan of Treatment Not on file documented as of this encounter Results * PRE-SURGICAL/PRE-PROCEDURE CORONAVIRUS (COVID 19) (07/30/2020 10:28 AM CDT) CORONAVIRUS SARS COV 2 PCR (RESP) NOT DETECTED 08/05/2020 3:22 PM CDT [facility] FIRST TEST NO 07/30/2020 11:57 AM CDT [facility] EMPLOYED IN HEALTHCARE NO 07/30/2020 11:57 AM CDT [facility] SYMPTOMATIC DEFINED BY CDC NO 07/30/2020 11:57 AM CDT [facility] DATE OF SYMPTOM ONSET UNKNOWN 07/30/2020 2:25 PM CDT [facility] HOSPITALIZATION STATUS NO 07/30/2020 11:57 AM CDT [facility] PATIENT IN ICU NO 07/30/2020 11:57 AM CDT [facility] RESIDENT OF [facility] NO 07/30/2020 11:57 AM CDT [facility] NO 07/30/2020 2:25 PM CDT [facility] PATIENT'S RACE WHITE OR 07/30/2020 11:57 AM CDT [facility] ETHNICITY NONHISPANIC 07/30/2020 11:57 AM CDT [facility] SOURCE (QST) NASOPHARYNGEAL SWAB 07/30/2020 11:57 AM CDT [facility] NASOPHARYNGEAL SWAB / Unknown 07/30/2020 10:28 AM CDT Tanner Austin MD MICROBIOLOGY - GENERAL OR DERABLES Final Result [facility] [address] [place] [address], [place] [phone] documented in this encounter Visit Diagnoses Diagnosis Pre-op exam- Primary Preoperative examination, unspecified documented in this encounter Additional Health Concerns Infection Onset Date Last Indicated Resolved Time COVID-19 Rule Out 07/30/2020 08/02/2020 08/02/2020 12:48 PM CDT documented as of this encounter Care Teams Mobile Crane Operator Relationship Specialty Start Date End Date Denis Goodson MD [address] [place] [address] PCP - General INTERNAL MEDICINE 07/27/20 documented as of this encounter
--- OUTSIDE RECORDS SUMMARY | 2024-05-08 12:56 | XMS_ITS | CONTINUITY OF CARE DOCUMENT ---
Author Name wiliam swain Address Unknown Organization [facility] Address [address] [place] [address] [address] [place] [address] Phone [phone] Care Team Providers Care Family Member Caretaker Name Role Phone wiliam swain Unavailable Unavailable INSURANCE PROVIDERS Payer name Policy type / Coverage type [place] red democrat ID [facility] [id number]
[2024-05-08 14:19] LABS: Basophils Absolute Auto 0.1 K/mm3 (0.0-0.1); Basophils Percent Auto 0.6 % (0.2-1.2); Eosinophils Absolute Auto 0.2 K/mm3 (0-0.3); Eosinophils Percent Auto 2.9 % (0-4.4); Hematocrit 46.9 % (42.0-52.0); Hemoglobin 15.6 g/dL (14.0-18.0); Immature Granulocyte Absolute 0.03 K/mm3 (0.00-0.031); Immature Granulocyte Percent A 0.4 % (0-0.5); Lymphocytes Absolute Auto 1.77 K/mm3 (0.9-3.2); Lymphocytes Percent Auto 22.6 % (18.3-44.2); Mean Corpuscular HGB Conc 33.3 g/dl (32-36); Mean Corpuscular Hemoglobin 31.2 pg (26-34); Mean Corpuscular Volume 93.8 fl (80-100); Mean Platelet Volume 10.2 fl (7.4-10.4); Monocytes Percent Auto 12.7 % (2.6-8.5); Neutrophils Absolute Auto 4.8 K/mm3 (1.3-6.7); Neutrophils Percent Auto 60.8 % (45.5-73.1); Platelet Count Result 228 k/mm3 (150-375); Red Cell Distribution Width 12.4 % (11.5-14.5); White Blood Count 7.8 K/mm3 (4.5-10.0)
[2024-05-08 14:25] LABS: Albumin Level 4.6 g/dL (3.5-5.1); Estimated Glomerular Filt Rate > 60; Glucose 95 mg/dL (65-110)
[2024-05-08 14:28] LABS: Urine Cotinine NEGATIVE
[2024-05-08 14:35] LABS: Hemoglobin A1C 5.6 % (<5.7)
[2024-05-08 15:34] LABS: MRSA (PCR) NOT DETECTED (NOT DETECTE)
== END 2024-05-08 11:53 | disposition home or self-care (01) ==
LOC: ANHSURGERY 11:55
PROVIDERS: PCP Hospitalist; Visit Provider Orthopaedic Surgery
DX: Z01.812 Encounter for preprocedural laboratory examination (principal); M17.12 Unilateral primary osteoarthritis, left knee
CPT/HCPCS: 80307; 82040; 82565; 82947; 83036; 85025; 87641

== ENCOUNTER 2024-06-02 00:56 | Day surgery (SDC) | payer MEDICARE, SELFPAY ==
[2024-05-08 12:11] VITALS: BP 153/78; PULSE 66; RESP 16; TEMP 36.7; O2SAT 98; BMI 25.0
--- NOTE | 2024-05-08 12:37 | PC.NURSE ---
Report to the Outpatient Waiting Room, entrance under the green pavilion located off [facility], at time ___06:00am____ on date _06/02/24 . Planned Procedure Time: _07:30am .? Time changes happen often and if your time is changed the preop area will call you the afternoon before. - You and your visitor will be asked to self-screen and do not enter if you have any COVID symptoms. Please call surgeon if you need to reschedule. - A mask is optional within the hospital at this time. Patients may have clear liquids (water, carbonated beverages, clear teas, apple juice) until 3 hours prior to surgery with a maximum of 20 ounces. - No food from midnight until time of surgery and no smoking, or chewing tobacco (or any form of nicotine). No chewing gum, candy or mints. (04:30am) Take only the following medications with a SIP of water on the morning of surgery: Amlodipine and Tylenol if needed DO NOT STOP ANY OF YOUR OTHER PRESCRIPTION MEDICATIONS PRIOR TO SURGERY EXCEPT THE FOLLOWING Hold all vitamins and supplements for 3 days per anesthesiologist.Date to take last dose_05/30/24. Medications to discontinue per physician None Date to take last dose____None Pt to check BP a few times as meds were just started and will FU w PCP if needed if remains elevated. Please no make-up, nail kinyarwanda, hairspray, perfume, deodorant, or body powder the day of surgery.? No jewelry (including any body piercings) or valuables the day of surgery, leave them at home.? Please take a shower or bath the night before, or the morning of, surgery with an antibacterial soap. Wear comfortable, loose fitting clothing.? - Jewelry must be removed prior to entering the operating room.? Rings and piercings that are not removed may be cut off. - The hospital will not accept responsibility for valuables.? - Please leave all valuables, including medications, at home the day of surgery. If you are going home after surgery, a licensed class c truck driver must drive you home.? - NO public transportation without another adult if you receive anesthesia. - We recommend that an adult stay with you for 24 hours following discharge. - We also recommend that you do not drive, make important decision, drink alcoholic beverages, or take any drugs that were not prescribed by your health care provider for at least 24 hours after your discharge time. Follow any additional instructions given to you from your surgeon. Telephone instructions given to ___Patient and asked if any additional questions and then verbalized understanding. Patient advised to call surgeon office or pre surgery nurse liaison [phone] if any additional questions.
[2024-06-02] VITALS (12 sets, daily range): BP systolic 130–153; BP diastolic 68–83; PULSE 64–73; RESP 11–18; TEMP 36.9–37.1; O2SAT 94–99; BMI 24.9
--- NOTE | ~2024-06-02 | XR_ITS ---
EXAMINATION: [id number] DATE: 06/02/2024 11:21 INDICATION: Postoperative evaluation following left total knee arthroplasty. TECHNIQUE: Anteroposterior and lateral views of the left knee were obtained. COMPARISON: 02/14/2024 FINDINGS: Left total knee arthroplasty without patellar resurfacing appears well seated and in near anatomic al ignment. No fractures identified. Expected postoperative subcutaneous and intra-articular gas. IMPRESSION: 1. Left total knee arthroplasty, negative for postoperative purposes. Reviewed, dictated and finalized at location A.
--- OUTSIDE RECORDS SUMMARY | 2024-06-02 00:58 | XMS_ITS | Clinical Summary ---
Author Organization [facility] Address [address] [place] [address] Care Team Providers Care Hosted Services Analyst Name Role Phone Denis Goodson MD Primary Care Provider [phone] Allergies No known active allergies Medications finasteride [...] Vaccines (1 of 2) 2006 Pneumococcal Vaccine: 50+ Ye ars (1 of 1 - PCV) 2021 COVID-19 Vaccine (1 - 2023-2 5 season) 2023 RSV Immunization or 60+ Years (1 [...] 3:52 PM 08/03/2020 5:42 PM Care Teams Hosted Services Analyst Relationship Specialty Start Date End Date Denis Goodson MD [address] [place] [address] PCP - General INTERNAL MEDICINE 07/27/20
--- OUTSIDE RECORDS SUMMARY | 2024-06-02 00:58 | XMS_ITS | Referral Summary ---
Author Organization [facility] [address] Address [address] [place] [address] Care Team Providers Care Out And Out Cigar Maker Hand Name Role Phone Awilda Smyth MD, Sandeep Garibay Primary Care Provide r Encounters Date Type Department Care Team Description 05/05/2024 Telephone [facility] [address] [place] [phone] Sandeep Kaiser Jr., MD 05/04/2024 8:30 AM CDT Office Visit [facility] [address] [place] [phone] Sandeep Kaiser Jr., MD Preventative health care (Primary Dx); Pure hypercholesterolemia; Primary hypertension; History of tobacco abuse; Abnormal stress test; Fatigue, unspecified type; Preoperative cardiovascular examination 04/02/2024 9:15 AM CARDIOVASCULAR TECHNICIAN Office Visit [facility] [address] [place] [phone] Sandeep Kaiser Jr., MD Primary osteoarthritis of left knee (Primary Dx) 03/31/2024 Telephone [facility] [address] [place] [phone] Sandeep Kaiser Jr., MD Medical Question/Miscellaneous [...] by mouth daily 90 tablet 4 5 05/27/19 26 Active losartan (COZAAR) 50 mg tabletIndications: [...] and establishing or updating healthcare power of facility specialist document and providing our office with a [...] HEPATITIS C ANTIBODY Routine 03/28/2023 12:18 PM CARDIOVASCULAR TECHNICIAN Preventative health care PSA SCREEN Routine 03/28/2023 12:18 PM CARDIOVASCULAR TECHNICIAN Preventative health care COLONOSCOPY Routine 11/18/2019 from Last 3 Months [...] Km Mora M.D. CH: NICOL Report ID: [id number] Reading Location: [id number] Procedure Note Km Mora Jr., MD - [...] Electronically signed by Km Mora M.D. CH: Report ID: [id number] Reading Location: [id number] Sandeep Kaiser Jr., MD IMG US PROCEDURES Fin al Result * PSA screen (03/28/2023 12:18 PM CARDIOVASCULAR TECHNICIAN) PSA-Total 0.74 <=5.40 ng/mL [facility] Comment: Interpretive [...] revised 21. Testing performed by: [facility], [address] [place] [address]., [id number] Blood 03/28/2023 12:1 8 PM CARDIOVASCULAR TECHNICIAN 03/28/2023 1:48 PM CARDIOVASCULAR TECHNICIAN Sandeep Kaiser Jr., MD LAB BLOOD ORDERABLES Final Result [facility] [address] [facility] Department [place] [address] * Hepatitis C antibody Blood (03/28/2023 12:18 PM CARDIOVASCULAR TECHNICIAN) Hep C Ab Nonreactive Nonreactive [facility] Comment: [...] on 2019. Blood 03/28/2023 12:1 8 PM CARDIOVASCULAR TECHNICIAN 03/28/2023 2:38 PM CARDIOVASCULAR TECHNICIAN Sandeep Kaiser Jr., MD LAB MICROBIOLOGY - [facility] ORDERABLES Final Result [facility] [address] [facility] Department [place] [address] * COLONOSCOPY (11/18/2019) Scribed Colonoscopy Abnormal Historical Provider HEALTH MAINTENANCE Final Result from Last 3 Months or Most Recently Relevant to Health Maintenance Insurance [facility] MEDICARE ADVANTAGE [facility] MEDIC[facility] Address: [facility] [address] [place] [address] Care Teams Out And Out Cigar Maker Hand Relationship Specialty Start Date End Date Sandeep Kaiser Jr., MD [address] [place] [id number] PCP - General Internal Medicine 03/28/23
--- OUTSIDE RECORDS SUMMARY | 2024-06-02 00:58 | XMS_ITS | CONTINUITY OF CARE DOCUMENT ---
Author Name wiliam swain Address Unknown Organization [facility] Address [id number] [place] [address] [address] [place] [address] Phone [phone] Care Team Providers Care Artificial Stone Applicator Name Role Phone wiliam swain Unavailable Unavailable INSURANCE PROVIDERS Payer name Policy type / Coverage type [place] red green party ID [facility] [id number]
--- OUTSIDE RECORDS SUMMARY | 2024-06-02 00:58 | XMS_ITS | Encounter Summary ---
Author Organization [facility] Address [address] [place] [address] Care Team Providers Care Photolithographic Stripper Name Role Phone Denis Goodson MD Primary Care Provider [phone] Encounter Details Date Type Department Care Team (Late st Contact Info) Description 07/27/2020 Prep for Procedure [facility] Pre-Admission Testing [place], [place] [id number] Tanner Austin MD [address] [facility]. [place], [place] [id number] Social History Tobacco Use Types Packs/Day Years [...] (RESP) NOT DETECTED 08/05/2020 3:22 PM CDT [facility] FIRST TEST NO 07/30/2020 11:57 AM CDT [facility] EMPLOYED IN HEALTHCARE NO 07/30/2020 11:57 AM CDT [facility] SYMPTOMATIC DEFINED BY CDC NO 07/30/2020 11:57 AM CDT [facility] DATE OF SYMPTOM ONSET UNKNOWN 07/30/2020 2:25 PM CDT [facility] HOSPITALIZATION STATUS NO 07/30/2020 11:57 AM CDT [facility] PATIENT IN ICU NO 07/30/2020 11:57 AM CDT [facility] RESIDENT OF [facility] NO 07/30/2020 11:57 AM CDT [facility] NO 07/30/2020 2:25 PM CDT [facility] PATIENT'S RACE WHITE OR 07/30/2020 11:57 AM CDT [facility] ETHNICITY NONHISPANIC 07/30/2020 11:57 AM CDT [facility] SOURCE (QST) NASOPHARYNGEAL SWAB 07/30/2020 11:57 AM CDT [facility] NASOPHARYNGEAL SWAB / Unknown 07/30/2020 10:28 AM CDT Tanner Austin MD MICROBIOLOGY - GENERAL OR DERABLES Final Result [facility] [address] [place] [address], [place] [phone] documented in this encounter Visit Diagnoses Diagnosis Pre-op exam- Primary Preoperative examination, unspecified documented in this encounter Additional Health Concerns Infection Onset Date Last Indicated Resolved Time COVID-19 Rule Out 07/30/2020 08/02/2020 08/02/2020 12:48 PM CDT documented as of this encounter Care Teams Photolithographic Stripper Relationship Specialty Start Date End Date Denis Goodson MD [address] [place] [address] PCP - General INTERNAL MEDICINE 07/27/20 documented as of this encounter
--- OUTSIDE RECORDS SUMMARY | 2024-06-02 00:58 | XMS_ITS | Clinical Summary ---
Author Organization [facility] [address] Address [address] [place] [address] Care Team Providers Care Senior Controls Analyst Name Role Phone Awilda Smyth MD, Sandeep [...] and establishing or updating healthcare power of wet machine cutter document and providing our office with a [...] Type Department Care Team Description 05/05/2024 Telephone [facility] [address] [place] [address] [place] [phone] Sandeep Kaiser Jr., MD 05/04/2024 8:30 AM CDT Office Visit [facility] [address] [place] [address] [place] [phone] Sandeep Kaiser Jr., MD Preventative health care (Primary Dx); Pure hypercholesterolemia; Primary hypertension; History of tobacco abuse; Abnormal stress test; Fatigue, unspecified type; Preoperative cardiovascular examination 04/02/2024 9:15 AM SKIDDER LEVER OPERATOR Office Visit [facility] [address] [place] [phone] Sandeep Kaiser Jr., MD Primary osteoarthritis of left knee (Primary Dx) 03/31/2024 Telephone [facility] [address] [place] [phone] Sandeep Kaiser Jr., MD Medical Question/Miscellaneous [...] of 1 - PCV) 2006 Influenza Vaccine (Season Ended) 2024 Colon Cancer Screening-Colonoscopy 11/17/2024 11/18/2019 Prostate Cancer [...] HEPATITIS C ANTIBODY Routine 03/28/2023 12:18 PM SKIDDER LEVER OPERATOR Preventative health care PSA SCREEN Routine 03/28/2023 12:18 PM SKIDDER LEVER OPERATOR Preventative health care HM COLONOSCOPY Routine 11/18/2019 [...] Km Mora M.D. CH: NICOL Report ID: [id number] Reading Location: [id number] Procedure Note Km Mora Jr., MD - [...] Km Mora M.D. CH: NICOL Report ID: [id number] Reading Location: [id number] Sandeep Kaiser Jr., MD IMG US PROCEDURES Fin al Result * PSA screen (03/28/2023 12:18 PM SKIDDER LEVER OPERATOR) PSA-Total 0.74 <=5.40 ng/mL [facility] Comment: Interpretive [...] data last revised 21. Testing performed by: [facility], [address] [place] [address]., [id number] Blood 03/28/2023 12:1 8 PM SKIDDER LEVER OPERATOR 03/28/2023 1:48 PM SKIDDER LEVER OPERATOR Sandeep Kaiser Jr., MD LAB BLOOD ORDERABLES Final Result [facility] [address] [facility] Department [place] [address] * Hepatitis C antibody Blood (03/28/2023 12:18 PM SKIDDER LEVER OPERATOR) Hep C Ab Nonreactive Nonreactive ADRIANE Comment: [...] on 2019. Blood 03/28/2023 12:1 8 PM SKIDDER LEVER OPERATOR 03/28/2023 2:38 PM SKIDDER LEVER OPERATOR Sandeep Kaiser Jr., MD LAB MICROBIOLOGY - GE NERAL ORDERABLES Final Result [facility] Department of Laboratories [place], [place] [id number] * COLONOSCOPY (11/18/2019) Scribed Colonoscopy Abnormal us Historical Provider HEALTH MAINTENANCE Final Result from Last 3 Months or Most Recently Relevant to Health Maintenance Insurance [facility] MEDICARE ADVANTAGE Care Teams Senior Controls Analyst Relationship Specialty Start Date End Date Sandeep Kaiser Jr., MD [address] [place] [address] PCP - General Internal Medicine 03/28/23
[2024-06-02] MEDS: ACETAMINOPHEN 500 MG TABLET 1000 MG PO (06:40)
[2024-06-02] MEDS: TRANEXAMIC ACID 1,000MG/ISO100 1,000 MG/100 ML BAG 200 MG IVPB (07:00)
--- NOTE | 2024-06-02 07:09 | P.PNAN_ITS ---
Anes - Initial Pre Proc Eval Procedure: Operation Date: 06/02/24 07:30 Proposed Procedures p Left Custom Total Knee Arthroplasty - Ian Roman MD Date/Time: 06/02/24 07:09 Surgeon: Ian Roman MD Pre Op Diagnosis: primary OA left knee Patient Data Age: 68 Gender: M Height: 1.88 m Weight: 88 kg Last Vital Signs Temp 37.1 C 06/02/24 06:14 Pulse 69 06/02/24 06:14 Resp 14 06/02/24 06:14 BP 152/73 H 06/02/24 06:14 Pulse Ox 98 06/02/24 06:14 O2 Del Method Room Air 06/02/24 06:14 Allergies Allergy/AdvReac Type Severity Reaction Status Date / Time No Known Allergies Allergy Verified 06/02/24 06:13 Home Medications ?Medication ?Instructions ?Recorded ?Confirmed ?Type multivitamin 1 tablet PO DAILY 02/14/24 06/02/24 History acetaminophen 650 mg 650 mg PO Q8H pain 05/08/24 05/08/24 History tablet,extended release losartan 50 mg tablet 50 mg PO DAILY 06/02/24 06/02/24 History Laboratory Tests 06/02/24 06:35 Blood Type A Positive Antibody Screen Pending Patient hx anesthesia problems: none Family hx anesthesia problems: none Results Review: All pre-operative results and documents have been reviewed as part of the pre- operative evaluation. [facility] Past Medical History Medical History LILI (obstructive sleep apnea) Aftercare following right shoulder joint replacement surgery Surgical History Surgical History S/P bilateral inguinal herniorrhaphy Previous back surgery Status post tonsillectomy and adenoidectomy Family History Family History Sibling Family history of gastrointestinal disorder Family history of malignant neoplasm of cervix Father Family history of congenital heart disease Mother Family history of malignant neoplasm Other Family history of arthritis Family history of lung cancer Social History Social History Smoking packs per day: 0.3 Smoking cigarettes per day: 6.0 Years smoked: 10 Smoking pack-years: 3.00 Smoking status: Former smoker Second hand tobacco smoke exposure: No Smoking end date: 02/18/14 Alcohol intake: current Drinks per week: 14 Substance use: never Do You Feel Safe in your Home?: Yes Lack of Transportation: No Lack of Food: Never True Current Housing: I Have Housing Concerned About Future Housing: No Difficulty Paying Gas/Electric Bills: No Difficulty Paying for Meds: No Currently Unemployed: No Education: High School Diploma/GED Difficulty w/ Childcare or Family Care: No Living arrangements: with family Additional living arrangements comments: Gender identity (if verbalized by the patient): Male Spiritual care concerns: No Anes - Eval Final PreProcedure Day of Procedure 06/02/24 07:09 Patient weight: normal Heart: regular rate and rhythm Lungs: clear to auscultation Airway: Mallampati scale class II Neurological: alert and oriented Last oral intake: >/= 8 hours ASA classification: II Emergent: no Anesthetic plan: proceed Anesthesia type and monitoring: general LMA and standard monitoring Results Review: All pre-operative results and documents have been reviewed as part of the pre- operative evaluation. Informed Consent: The patient's anesthetic plan and its attendant risks and benefits were discussed with the patient/family/POA. Questions were solicited and answers p rovided to the satisfaction of the patient/family/POA.
--- NOTE | 2024-06-02 07:16 | WPDHPUPDATE1 ---
History and Physical Update Update Date/Time: 06/02/24 07:16 History and Physical has been reviewed, including an updated exam of the patient. There are NO changes in the patient's condition. Risks, benefits, and alternatives have been discussed and questions answered. Patient agrees to proceed with procedure.
[2024-06-02] MEDS: ceFAZolin 2 GM/D5W 50 ML 2 GM/50 ML BAG IVPB (07:21)
[2024-06-02] MEDS: SODIUM CHLORIDE 0.9% IV 37.7 ML, MORPHINE SULFATE INJ (*CRX) 2 MG, ROPivacaine HCL 1% 2... INFILTRATE (07:45)
[2024-06-02] MEDS: LACTATED RINGERS 1,000 ML 30 ML IV CONT ×2 (08:35→09:18)
[2024-06-02] MEDS: GENTAMICIN BONE CEMENT REFOBACIN 1 EACH TOPICAL (08:38)
--- NOTE | 2024-06-02 09:04 | W.PM.PROC2 ---
Procedure Note - Detailed Date of Procedure 06/02/24 Pre-op Diagnosis Left knee degenerative arthritis. Post-op Diagnosis Same Procedure Performed Custom total knee arthroplasty, left. Surgeon Ian Roman MD Communication Arts Lecturer Dayana Wooten PA-C Anesthesia General Findings Excellent bone quality. No releases required. Description of Procedure Preoperative antibiotics were given. The limb was prepped and draped in the usual sterile fashion with a well-padded tourniquet high on the thigh. The limb was exsanguinated and the tourniquet inflated to 300 mmHg. A longitudinal incision was created just medial to the patella. A trivector approach to the knee was performed. Arthrotomy was taken down through the joint capsule. No significant releases were initially taken. The femur was exposed and the F1 jig was applied. The coring tool was used to remove the cartilage for the F2 jig to sit flush with the bone. The jig was pinned and the distal cut carefully taken. Caliper measurements confirmed appropriate bony resections according to the preoperative templated plan. The F4 cutting jig for the femur was applied, at the standard rotation. The AP and anterior chamfer cuts were taken. The F5 jig was applied and the posterior chamfer cuts were taken. The tibia was prepared using the T1 jig, after removing cartilage for the jig contact points. Proper alignment was checked with the alignment paulette. The tibia was cut using the T1u guide. Gap balancing was performed. Gap measurements were taken and the knee was trialed. Excellent alignment and soft tissue balancing was confirmed. The posterior cruciate ligament was recessed along the proximal tibia. The patella appeared healthy, and a lateral facetectomy was performed. Meniscal remnants were removed. The trial components were assembled. Excellent range of motion and proper soft tissue balancing were confirmed throughout the full range of motion. Patellar tracking was excellent. The knee was copiously irrigated periodically throughout the procedure. The real implants were cemented into position. Excess cement was carefully removed. The wound was closed in layers with interrupted #1 Vicryl suture, 2-0 strata fix suture, 0 strata fix suture, 2-0 strata fix suture. Steri-Strips placed on the skin with the knee flexed. Sterile bulky dressing applied. The patient was brought to the recovery room in stable condition. There were no complications. Physician orthotics assistant, Dayana Wooten PA-C, required for surgery; including patient positioning, draping, tissue retraction, maintaining instrument position, wound closure, and dressing placement. Implants Conformis Custom total knee arthroplasty. Cemented. Cruciate retaining. 7B insert. Estimated Blood Loss 20 Tourniquet Time Total Tourniquet Time: 55 Drains No Complications No immediate complications Condition Stable Disposition PACU [facility] Billing Surgery - Charge Forward: Surgery Billing
[2024-06-02] MEDS: fentaNYL CITRATE INJ (*CRX) 100 MCG/2 ML VIAL 25 MCG IV PUSH ×8 (09:30→10:05)
[2024-06-02] MEDS: oxyCODONE HCL (*CRX) 5 MG TAB IR PO (10:54)
--- NOTE | 2024-06-02 12:16 | SUR.PHASEII ---
Patient meets discharge criteria per PT and OT.
== END 2024-06-02 12:49 | disposition home or self-care (01) ==
PROVIDERS: PCP Hospitalist; Visit Provider Orthopaedic Surgery
PROC: (CPT 27447; principal; 2024-06-02 07:30)
DX: M17.12 Unilateral primary osteoarthritis, left knee (principal); G47.33 Obstructive sleep apnea (adult) (pediatric); Z98.890 Other specified postprocedural states; Z98.1 Arthrodesis status; Z87.891 Personal history of nicotine dependence; Z80.49 Family history of malignant neoplasm of other genital organs; Z80.1 Family history of malignant neoplasm of trachea, bronchus and lung; Z82.49 Family history of ischemic heart disease and other diseases of the circulatory system
CPT/HCPCS: 27447; 36415; 73560; 86850; 86900; 86901; 97110; 97161; 97165; A9270; C1713; C1776; J0171; J0690; J1100; J1885; J2270; J2405; J2704; J2795; J3010; J7120

== ENCOUNTER 2025-02-08 10:43 | Outpatient (CLI) | payer MEDICARE, SELFPAY ==
--- NOTE | ~2025-02-08 | XR_ITS ---
XR ankle RT min 3V 02/08/2025 11:32 INDICATION: Right ankle pain PROCEDURE: 4 views right ankle COMPARISON: No prior studies for comparison. FINDINGS: Fracture, dislocation or subluxation is not identified. There is a prominent degenerative calcaneal enthesophyte. The soft tissues appear within normal limits. No foreign bodies are identified. IMPRESSION: 1: NO ACUTE BONE OR JOINT ABNORMALITY IDENTIFIED. Reviewed, dictated and finalized at location O. TRONIC VIDEO GAMES SERVICER
--- NOTE | ~2025-02-08 | XR_ITS ---
XR knee LT 3V 02/08/2025 11:32 INDICATION: Left knee arthroplasty PROCEDURE: 3 views left knee COMPARISON: Comparison to multiple prior studies sequentially, with oldest reviewed study dated 02/14/2024. FINDINGS: Fracture, dislocation or subluxation is not identified. There is a left total knee arthroplasty. Prosthesis well seated. No underlying fracture or traumatic malalignment. No significant joint effusion. No foreign bodies. IMPRESSION: 1: NO ACUTE BONE OR JOINT ABNORMALITY IDENTIFIED. Reviewed, dictated and finalized at location O. P TECHNICIAN
--- NOTE | ~2025-02-08 | XR_ITS ---
XR knee RT min 4V 02/08/2025 11:31 Indication: Right knee pain Procedure: 4 views right knee Comparison: No prior studies for comparison. Findings: No fracture, subluxation or dislocation. There is severe tricompartment osteoarthritis. Small joint effusion. No foreign bodies. Impression: 1: Severe tricompartment osteoarthritis. Reviewed, dictated and finalized at location O. ERCIAL PEST CONTROL TECHNICIAN Impression: 1: Severe tricompartment osteoarthritis.
== END 2025-02-08 10:44 | disposition home or self-care (01) ==
LOC: GOSHIMG 10:43
PROVIDERS: PCP Orthopaedic Surgery; Visit Provider Orthopaedic Surgery
DX: M17.11 Unilateral primary osteoarthritis, right knee (principal); Z96.652 Presence of left artificial knee joint; M25.571 Pain in right ankle and joints of right foot
CPT/HCPCS: 73562; 73564; 73610